=== PATIENT | male | born 1995 | race Caucasian/White ===

== ENCOUNTER 2020-04-18 07:18 | Outpatient (CLI) | payer BC ==
[2020-04-18 21:23] LABS: SARS-CoV-2 MS2 Positive; SARS-CoV-2 N Gene Negative; SARS-CoV-2 S Gene Negative; SARS-CoV-2 by NAA Not Detected (NotDetected); SARS-CoV-2 orf1ab Negative
== END 2020-04-18 07:19 | disposition home or self-care (01) ==
LOC: LABBT 07:18
PROVIDERS: ATTEND Urology
DX: Z01.812 Encounter for preprocedural laboratory examination (principal); N47.1 Phimosis; Z20.822 Contact with and (suspected) exposure to COVID-19
CPT/HCPCS: 87635; U0003

== ENCOUNTER 2020-04-23 11:00 | Day surgery (SDC) | payer OTHER ==
[2020-04-21 10:06] VITALS: BMI 22.8
[2020-04-23] MEDS ORDERED: Ondansetron PF 4 MG/2 ML Vial ONE (11:58)
[2020-04-23] MEDS ORDERED: PROPOFOL 200 MG/20 ML VIAL ONE (11:58)
[2020-04-23] MEDS ORDERED: Dexamethasone 20 MG/5 ML VIAL ONE (11:58)
[2020-04-23] MEDS ORDERED: Lidocaine 1% PF 5 ML VIAL ONE (11:58)
[2020-04-23] MEDS ORDERED: Ketorolac Tromethamine 30 MG/ML VIAL ONE (11:58)
[2020-04-23] MEDS ORDERED: Bupivacaine 0.25% HCL 30 ML VIAL ONE (12:17)
[2020-04-23] MEDS ORDERED: Bacitracin Zinc Ointment 30 gm TUBE ONE (12:17)
[2020-04-23] MEDS ORDERED: Fentanyl 100 MCG/2 ML VIAL ONE ×2 (13:54→15:23)
[2020-04-23] MEDS ORDERED: Midazolam HCl 2 mg/2 ml Vial ONE (14:03)
--- NOTE | 2020-04-24 07:33 | OP ---
DATE OF PROCEDURE: 04/23/2020 PRIMARY CARE PHYSICIAN: John Bertrand MD PREOPERATIVE DIAGNOSIS: A 25-year-old male with phimosis. POSTOPERATIVE DIAGNOSIS: A 25-year-old male with phimosis. PROCEDURE: circumcision ANESTHESIA: LMA. COMPLICATIONS: None apparent. DISPOSITION: To recovery room in stable condition. INDICATIONS FOR PROCEDURE AND HISTORY: Florentino is a pleasant 25-year-old male, referred to me for phimosis. He has had discomfort, and difficulty retracting his foreskin and moderate amount of smegma is noted. He presents today for circumcision. Risks and complications of the procedure were reviewed, including meatal stenosis, bleeding, hematoma, injury to adjacent organs, chronic pain, penile curvature. All questions were answered to his satisfaction and desired to proceed without reservation. DESCRIPTION OF PROCEDURE: After an informed consent was signed, he was taken to the operating room, placed in a supine position with the genital area formally prepped and draped. He does have moderate phimosis in which there was resistance reducing his foreskin. However, we were able to reduce and there was moderate amount of smegma. Frenular adhesion is noted. The area was formally prepped and draped and a mosquito clamp was utilized to reduce the frenular adhesion and incised. There was a prominent vascularity of the frenular artery, this was coagulated with electrocautery. At the end of the procedure, it was oversewn with 3-0 chromic with an SH needle. With the frenular adhesion reduced, we marked the foreskin at the level of the coronal sulcus and circumferentially we excised the foreskin with a 15 blade. The ring of foreskin was removed with electrocautery. We took time in obtaining good hemostasis as he has prominent vascularity given his young age. Four quadrant sutures were placed using 2-0 chromic. Subsequently, using 3-0 chromic, we reapproximated the foreskin circumferentially with interrupted stitches. The area of the frenulum was reinforced with 3-0 chromic in interrupted fashion. Good hemostasis was obtained. He tolerated the procedure well and transported to the recovery room in stable condition. He will follow up with me this Tuesday for wound check. Job ID: [id number]
== END 2020-04-23 17:58 | disposition home or self-care (01) ==
LOC: SDC 11:00
PROVIDERS: ATTEND Urology
PROC: 0VTTXZZ Resection of Prepuce, External Approach (ICD-10-PCS; principal; 2020-04-23)
DX: N47.1 Phimosis (principal)
CPT/HCPCS: 88304; J0690; J1100; J1885; J2250; J2405; J2704; J3010; S0020